=== PATIENT | female | born 1990 | race Caucasian/White ===

== ENCOUNTER 2017-03-28 14:35 | Outpatient (CLI) | payer BC ==
[~2017-03-28] VITALS: Ht 160 cm; Wt 81.4 kg
[~2017-03-28 14:35] MED LIST: ALLEGRA30 MG PO; FLONASE NASAL S16 GM NS; NECON 1/35 35 M1 TAB PO; PAMELOR 25MG25 MG PO; PHENERGAN 25 TA25 MG PO; ZOFRAN 4MG T4 MG/TAB PO
[2017-03-28 14:45] VITALS: BP 140/92; PULSE 106; TEMP 98.2
[2017-03-28] MEDS ORDERED: OMNICEF 300MG300 MG PO (14:54)
[2017-03-28] MEDS ORDERED: DICLEGIS (14:55)
[2017-03-28] MEDS ORDERED: PEPCID40 MG PO (14:55)
[2017-03-28] MEDS ORDERED: PROCARDIA XL 3030 MG PO (14:56)
[2017-03-28] MEDS ORDERED: PRENATAL MVI (14:57)
[2017-03-28 15:00] VITALS: BP 130/84; PULSE 106
[2017-03-28 15:15] LABS: BASO % 0.4 % (0.0-2.0); EOS # 0.1 (0.0-0.7); GRAN # 6.4 (1.4-6.5); GRAN % 72.1 % (42.2-75.2); HEMATOCRIT 37.1 % (37.0-47.0); HEMOGLOBIN 12.4 g/dl (12.5-16.0); LYMPH # 1.7 (1.2-3.4); LYMPH % 19.5 % (20.0-51.0); MEAN CELL VOLUME 89 fl (80.0-100.0); MEAN CORPUSCULAR HEMOGLOBIN 30 pg (27.0-31.0); MEAN CORPUSCULAR HGB CONC 33 g/dl (33.0-37.0); MEAN PLATELET VOLUME 10.6 fl (7.4-10.4); MONO # 0.6 (0.1-0.6); MONO % 6.6 % (1.7-9.3); PLATELET COUNT 239 K/mm3 (130-400); RED BLOOD COUNT 4.17 M/mm3 (4.10-5.30); WHITE BLOOD COUNT 8.9 K/mm3 (4.8-10.8)
[2017-03-28 15:26] LABS: ADJUSTED CALCIUM 9.1 mg/dL (8.4-10.2); ALBUMIN 3.5 gm/dL (3.5-5.0); BILIRUBIN,TOTAL 0.4 mg/dL (0.0-1.0); CALCIUM 8.7 mg/dL (8.4-10.2); CREATININE, serum 0.73 mg/dL (0.52-1.25); TOTAL PROTEIN 6.7 gm/dL (6.4-8.2)
[2017-03-28 15:27] LABS: PH 7 (5-8); URINE APPEARANCE Clear; URINE BILIRUBIN Negative (NEGATIVE); URINE BLOOD Negative (NEGATIVE); URINE COLOR Yellow; URINE GLUCOSE Negative (NEGATIVE); URINE KETONE Negative (NEGATIVE); URINE UROBILINOGEN Negative (NEGATIVE)
[2017-03-28 15:30] VITALS: BP 133/85; PULSE 101
[2017-03-28 15:44] LABS: URINE WBC 0-2 /hpf
[2017-03-28 15:59] VITALS: BP 127/85; PULSE 97
== END 2017-03-28 16:10 | disposition home or self-care (01) ==
LOC: LDRO 14:35
PROVIDERS: Obstetrics & Gynecology
DX: O99.89 Other specified diseases and conditions complicating pregnancy, childbirth and the puerperium (principal); R03.0 Elevated blood-pressure reading, without diagnosis of hypertension; Z3A.37 37 weeks gestation of pregnancy

== ENCOUNTER 2017-03-31 08:41 | Inpatient (IN) | payer BC ==
[2017-03-31] VITALS (54 sets, daily range): BP systolic 120–164; BP diastolic 70–95; PULSE 88–115; TEMP 98.1–98.3
[~2017-03-31] VITALS: Ht 160 cm; Wt 80.5 kg
[~2017-03-31 08:41] MED LIST changes: +DICLEGIS; +OMNICEF 300MG300 MG PO; +PEPCID40 MG PO; +PRENATAL MVI; +PROCARDIA XL 3030 MG PO
[2017-03-31] MEDS ORDERED: ZYRTEC 10MG10 MG PO (10:24)
[2017-03-31 10:31] LABS: BASO % 0.3 % (0.0-2.0); EOS # 0.1 (0.0-0.7); EOS % 0.6 % (0-4.0); GRAN # 7.5 (1.4-6.5); GRAN % 76.9 % (42.2-75.2); HEMOGLOBIN 12.4 g/dl (12.5-16.0); LYMPH # 1.6 (1.2-3.4); LYMPH % 16.6 % (20.0-51.0); MEAN CELL VOLUME 88 fl (80.0-100.0); MEAN CORPUSCULAR HEMOGLOBIN 30 pg (27.0-31.0); MEAN CORPUSCULAR HGB CONC 34 g/dl (33.0-37.0); MEAN PLATELET VOLUME 10.6 fl (7.4-10.4); MONO # 0.5 (0.1-0.6); MONO % 5.1 % (1.7-9.3); PLATELET COUNT 249 K/mm3 (130-400); RED BLOOD COUNT 4.16 M/mm3 (4.10-5.30); REDCELL DISTRIBUTION WIDTH-CV 13.2 % (11.5-14.5); WHITE BLOOD COUNT 9.7 K/mm3 (4.8-10.8)
[2017-03-31 10:39] LABS: HEMATOCRIT 36.7 % (37.0-47.0)
[2017-03-31 10:42] LABS: ADJUSTED CALCIUM 9.3 mg/dL (8.4-10.2); ALBUMIN 3.6 gm/dL (3.5-5.0); BILIRUBIN,TOTAL 0.4 mg/dL (0.0-1.0); CREATININE, serum 0.66 mg/dL (0.52-1.25); POTASSIUM 4.1 mmol/L (3.4-5.0); TOTAL PROTEIN 6.8 gm/dL (6.4-8.2)
[2017-04-01] VITALS (49 sets, daily range): BP systolic 116–151; BP diastolic 62–95; PULSE 87–151; TEMP 97.3–99.4
[2017-04-02 07:39] LABS: BASO # 0.1 (0.0-0.2); BASO % 0.4 % (0.0-2.0); EOS # 0.2 (0.0-0.7); EOS % 0.7 % (0-4.0); GRAN % 82.8 % (42.2-75.2); LYMPH # 2.5 (1.2-3.4); LYMPH % 11.2 % (20.0-51.0); MEAN CELL VOLUME 90 fl (80.0-100.0); MEAN CORPUSCULAR HGB CONC 33 g/dl (33.0-37.0); MEAN PLATELET VOLUME 10.2 fl (7.4-10.4); MONO # 0.9 (0.1-0.6); MONO % 4.3 % (1.7-9.3); PLATELET COUNT 232 K/mm3 (130-400); RED BLOOD COUNT 3.63 M/mm3 (4.10-5.30); REDCELL DISTRIBUTION WIDTH-CV 13.4 % (11.5-14.5)
[2017-04-02 08:06] LABS: HEMATOCRIT 32.7 % (37.0-47.0); HEMOGLOBIN 10.9 g/dl (12.5-16.0); MEAN CORPUSCULAR HEMOGLOBIN 30 pg (27.0-31.0); WHITE BLOOD COUNT 21.8 K/mm3 (4.8-10.8)
[2017-04-02 08:37] VITALS: BP 124/68; PULSE 95; TEMP 98.4
[2017-04-02] MEDS ORDERED: IBU800 M1 PO (09:04)
[2017-04-02] MEDS ORDERED: PERCOCET 325 MG1 TA2 PO (09:04)
[2017-04-02 16:04] VITALS: BP 107/71; PULSE 90; TEMP 98
[2017-04-02 20:30] VITALS: BP 127/73; PULSE 112; TEMP 98.1
[2017-04-03 07:01] VITALS: BP 133/64; PULSE 104; TEMP 97.3
== END 2017-04-03 17:00 | disposition home or self-care (01) | DRG 774 ==
LOC: OB 08:41 → LDR 09:45 → OB 04-01 12:38
PROVIDERS: Obstetrics & Gynecology
PROC: 10E0XZZ Delivery of Products of Conception, External Approach (ICD-10-PCS; principal; 2017-04-01)
PROC: 0KQM0ZZ Repair Perineum Muscle, Open Approach (ICD-10-PCS; 2017-04-01)
PROC: 3E033VJ Introduction of Other Hormone into Peripheral Vein, Percutaneous Approach (ICD-10-PCS; 2017-04-01)
DX: O10.92 Unspecified pre-existing hypertension complicating childbirth (principal); O72.1 Other immediate postpartum hemorrhage; O86.4 Pyrexia of unknown origin following delivery; O76 Abnormality in fetal heart rate and rhythm complicating labor and delivery; O70.1 Second degree perineal laceration during delivery; Z3A.38 38 weeks gestation of pregnancy; Z37.0 Single live birth
CPT/HCPCS: J0690; J2405; J2590; J2795; J7120